=== PATIENT | male | born 1950 | race Caucasian/White ===

== ENCOUNTER → 2023-02-03 | Outpatient (CLI) | payer MEDICARE, OTHER ==
[~2023-02-03] MED LIST: CATHETER FLUSH 10 ML SYR IVP PRN
--- NOTE | 2023-02-03 14:41 | Diagnostic Imaging Report ---
INDICATION: Initial staging of prostate cancer. After the intravenous administration of 10.4 mCi F-18 PYLARIFY into the right antecubital fossa, the patient underwent a one hour incubation. PET/CT imaging is performed from head to upper thighs. There is normal biodistribution of activity throughout the visualized portions of the body. Uptake is seen within the salivary and lacrimal glands, bilaterally. Uptake in the head and neck region is otherwise unremarkable. There is physiologic uptake in the thorax without evidence of suspicious area of abnormal increased activity. Diffuse abdominal visceral uptake is noted including throughout the kidneys bilaterally. Activity is also excreted into the urinary bladder. There is activity seen posterior and caudal to the urinary bladder which has a somewhat elongated appearance. This may represent urine within the urethra although exclusion of lesion in the prostate bed is not possible. Otherwise, no abnormal activity is seen to indicate metastatic adenopathy or bone metastasis. 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 IMPRESSION: No PET/CT evidence of metastatic prostate cancer. There is uptake along the urinary tract and at the bladder base which could obscure residual or recurrent neoplasm at these sites and clinical correlation is recommended. Dictated by: Dictated on workstation # [id number]
== END ==
LOC: RAD 09:15
PROVIDERS: ATTEND Internal Medicine
DX: C61 Malignant neoplasm of prostate (principal); R97.20 Elevated prostate specific antigen [PSA]